=== PATIENT | female | born 1995 | race Native Hawaiian/Other Pacific Islander ===

== ENCOUNTER 2022-01-04 23:30 | Emergency (ER) | payer OTHER ==
[~2022-01-04] VITALS: Ht 157.5 cm; Wt 81.8 kg
[2022-01-05] MEDS ORDERED: DIAZEPAM 5 MG TABLET PO ONE (00:45)
[2022-01-05] MEDS ORDERED: NAPROXEN 250 MG TABLET PO ONE (00:45)
[2022-01-05] MEDS ORDERED: LIDOCAINE 5% TRANSDERMAL PATCH TD ONE (00:45)
[2022-01-05] MEDS ORDERED: ACETAMINOPHEN 325 MG TABLET PO ONE (00:45)
[2022-01-05 01:09] VITALS: BP 140/70
== END 2022-01-05 01:21 | disposition home or self-care (01) ==
LOC: EDSEX 23:32 → EMS 23:32
DX: S16.1XXA Strain of muscle, fascia and tendon at neck level, initial encounter (principal); X58.XXXA Exposure to other specified factors, initial encounter; Y93.B9 Activity, other involving muscle strengthening exercises; Y92.89 Other specified places as the place of occurrence of the external cause; Y99.0 Civilian activity done for income or pay
CPT/HCPCS: 99284; Z7502; Z7610